=== PATIENT | female | born 1965 | race African-American/Black ===

== ENCOUNTER 2016-11-01 04:39 | Emergency (ER) | payer OTHER ==
--- NOTE | ~2016-11-01 | CR72 ---
[facility] A Service of [facility] & [facility] RADIOLOGY TEXT RESULTS PATIENT: ANJALI KUMAR LOCATION: [facility] : 69 UNIT #: [id number] AGE: [address]: Penny Adams APRN SEX: F ORDER DR: [id number] [facility] [address] [place], [place] [address] [id number] E MR#: [id number] Acc #: [id number] NAME: ANJALI KUMAR : 1965 SEX: F STUDY DATE/TIME: 11/01/2016 3:50 UNIT: [facility] ROOM: STUDY DESCRIPTION: CR Chest Single View Portable Attending Physician: Penny Adams A.P.R.N. Ordering Physician: Penny Adams A.P.R.N. Primary Care Physician: [facility] MEDICAL IMAGING REPORT This report is preliminary unless electronic signature is present EXAM AP portable chest DATE: 11/01/2016 HISTORY Shortness breath and cough for today 2 days COMPARISON AP portable chest 04/28/2016 FINDINGS No acute airspace disease. Heart size stable. No pleural effusion or pneumothorax. No acute osseous abnormality. IMPRESSION No acute cardiopulmonary findings. Dictated by... Mckenzie Haley M.D. THIS IS AN ELECTRONICALLY VERIFIED REPORT Mckenzie Haley M.D. at 11/02/2016 10:01 PM [facility]/mirna TD: 11/01/2016 08:12 JOB #: [id number] MEDICAL IMAGING REPORT Page 1 of 1 COPY
[2016-11-01 04:26] LABS: URINE SOURCE CLEAN CATCH
[2016-11-01 04:33] LABS: URINE APPEARANCE CLOUDY; URINE BILIRUBIN NEG (NEG); URINE BLOOD TRACE (NEG); URINE COLOR YELLOW; URINE GLUCOSE NEG (NEG); URINE KETONE NEG (NEG); URINE LEUKOCYTE ESTERASE 3+ (NEG); URINE NITRATE NEG (NEG); URINE PH 5.5 (5-8); URINE PROTEIN NEG (NEG); URINE SPECIFIC GRAVITY 1.017 (1.003-1.035)
[2016-11-01 04:36] LABS: CULTURE INDICATED? YES; URINE BACTERIA AUWI 1+ (NEGATIVE); URINE SQUAMOUS EPITHELIAL CELL FEW /[HPF]; UWBCS1 AUWI 25-50 (0-5)
[~2016-11-01 04:39] MED LIST: AUGMENTIN PO; BENADRYL25 MG PO; FLONASE16 GM; GUAIFENESIN400 M1 PO; MOTRIN600 M2 PO; PREDNISONE PO; SUDAFED30 M1 PO; TESSALON200 MG PO; ZITHROMAX PO; ZYRTEC10 M2 PO
[2016-11-01 04:56] LABS: INFLUENZA A NEG (NEG); INFLUENZA B NEG (NEG)
== END 2016-11-01 05:46 | disposition home or self-care (01) ==
LOC: CED 04:39
PROVIDERS: Nurse Practitioner
DX: J06.9 Acute upper respiratory infection, unspecified (principal); N39.0 Urinary tract infection, site not specified; Z88.5 Allergy status to narcotic agent; Z88.2 Allergy status to sulfonamides; Z88.1 Allergy status to other antibiotic agents
CPT/HCPCS: 71010; 81003; 87086; 87651; 87804; 96372; 99283; J1885